=== PATIENT | male | born 1980 | race Hispanic/Latino ===

== ENCOUNTER 2021-12-11 10:35 | Observation (INO) | payer OTHER ==
[~2021-12-11] VITALS: Ht 172.7 cm; Wt 67.6 kg
[2021-12-11] MEDS ORDERED: SODIUM CHLORIDE 0.9% 500ML 500 ML IV ONE (11:30)
[2021-12-11 11:32] LABS: BASOPHILS # (AUTO) 0.1 (0.0-0.1); BASOPHILS % 1.4 % (0.0-1.0); EOSINOPHILS # (AUTO) 1.2 (0.0-0.4); EOSINOPHILS % 20.5 % (0.0-6.0); HEMATOCRIT 33.7 % (38.2-49.6); HEMOGLOBIN 11.4 g/dL (14.0-18.0); LYMPHOCYTES # (AUTO) 1.5 (1.0-3.2); MEAN CORPUSCULAR HEMOGLOBIN 36.4 pg (28-32); MEAN CORPUSCULAR HGB CONC 33.8 g/dL (31-35); MEAN CORPUSCULAR VOLUME 107.7 fL (81-99); MONOCYTES # (AUTO) 0.4 (0.2-0.8); MONOCYTES % 6.3 % (4.4-11.3); NEUTROPHILS # (AUTO) 2.8 (2.1-6.9); NEUTROPHILS % 46.5 % (38.7-80.0); PLATELET COUNT 90 x10e3/uL (140-360); RED BLOOD COUNT 3.13 x10e6/uL (4.3-5.7); RED CELL DISTRIBUTION WIDTH 13.2 % (11.7-14.4)
[2021-12-11 11:45] LABS: INR 1.42; PARTIAL THROMBOPLASTIN TIME 37.6 seconds (23.8-35.5); PROTHROMBIN TIME 18.3 seconds (11.9-14.5)
[2021-12-11 11:57] LABS: ALANINE AMINOTRANSFERASE 10 IU/L (0-55); ALBUMIN 3.9 g/dL (3.5-5.0); ALBUMIN/GLOBULIN RATIO 1.2 (0.8-2.0); ALKALINE PHOSPHATASE 114 IU/L (40-150); BLOOD UREA NITROGEN < 5 mg/dL (7-26); CALCIUM 8.9 mg/dL (8.4-10.2); CARBON DIOXIDE 24 mmol/L (22-29); CHLORIDE 107 mmol/L (98-107); CREATINE KINASE 36 IU/L (30-200); CREATININE, SERUM 0.67 mg/dL (0.72-1.25); EST GLOMERULAR FILTRATION RATE 131 ML/MIN (60-); GLUCOSE 95 mg/dL (74-118); MAGNESIUM 1.9 MG/DL (1.3-2.1); SODIUM 139 mmol/L (136-145)
[2021-12-11 12:10] LABS: BUN/CREATININE RATIO 7 (6-25)
[2021-12-11 12:17] LABS: COLOR,URINE YELLOW (YELLOW)
[2021-12-11 12:18] LABS: CLARITY,URINE CLEAR (CLEAR); KETONES,URINE TRACE (NEGATIVE); LEUKOCYTE ESTERASE ,URINE NEGATIVE (NEGATIVE); NITRITE,URINE NEGATIVE (NEGATIVE); PROTEIN,URINE DIPSTICK NEGATIVE (NEGATIVE)
[2021-12-11 12:19] LABS: URINE UROBILINOGEN >=8 mg/dL (0.2 - 1)
[2021-12-11 12:27] LABS: RBC,URINE 0-5 /HPF (0-5); WBC,URINE (MAN) 0-5 /HPF (0-5)
[2021-12-11 12:28] LABS: BACTERIA,URINE RARE /HPF
[2021-12-11] MEDS ORDERED: HYDROCODONE/APAP 10MG-325MG TAB PO STA (13:08)
[2021-12-11] MEDS ORDERED: SODIUM CHLORIDE 0.9% 1000ML 1,000 ML IV SCH (13:45)
[2021-12-11] MEDS ORDERED: HYDROCODONE/APAP 10MG-325MG TAB PO PRN (13:45)
[2021-12-11] MEDS ORDERED: ONDANSETRON HCL INJ 2MG/ML 2ML 2 MG/ML VIAL IV PRN (13:45)
[2021-12-11 14:25] LABS: EOSINOPHILS % (MANUAL) 17 % (0-7); LYMPHOCYTES % (MANUAL) 32 % (19-48); MONOCYTES % (MANUAL) 4 % (3.4-9.0); NEUTROPHILS % (MANUAL) 41 % (40-74); PROMYELOCYTES % (MANUAL) 1 % (0-0)
[2021-12-11 14:26] LABS: ANISOCYTOSIS SLIGHT; PLATELET ESTIMATE SLIGHTLY INCREASED
[2021-12-11 14:27] LABS: PLATELET MORPHOLOGY COMMENT NORMAL
[2021-12-11] MEDS: GABAPENTIN 300 MG CAP PO SCH ×2 (14:30→20:25)
[2021-12-11 15:38] VITALS: BP 100/62
[2021-12-11] MEDS ORDERED: NEURONTIN300 MG PO (15:51)
[2021-12-11] MEDS ORDERED: DOXYCYCLINE HY100 MG PO (15:51)
[2021-12-11] MEDS ORDERED: METHADONE HCL10 MG PO (15:51)
[2021-12-11] MEDS ORDERED: HYDROMORPHONE HC2 MG PO (15:51)
[2021-12-11] MEDS ORDERED: ONDANSETRON ODT4 MG PO (15:51)
[2021-12-11] MEDS ORDERED: BACLOFEN10 MG PO (15:51)
[2021-12-11 16:11] VITALS: BP 100/62
[2021-12-11] MEDS ORDERED: LACTULOSE SYRUP 20 GM/30 ML UDC PO SCH (17:00)
[2021-12-11] MEDS ORDERED: TRAMADOL HCL 50 MG TAB PO PRN (19:15)
[2021-12-11 19:40] LABS: CREATINE KINASE MB 0.3 ng/mL (0-5.0)
[2021-12-11 19:45] VITALS: BP 100/56
[2021-12-11 20:00] VITALS: BP 100/56
[2021-12-11] MEDS: LACTULOSE SYRUP 20 GM/30 ML UDC PO SCH (20:25)
[2021-12-12 00:49] VITALS: BP 93/55
[2021-12-12 02:42] LABS: CREATINE KINASE MB 0.2 ng/mL (0-5.0)
[2021-12-12 05:21] VITALS: BP 103/64
[2021-12-12 05:56] LABS: BASOPHILS # (AUTO) 0.1 (0.0-0.1); BASOPHILS % 0.9 % (0.0-1.0); EOSINOPHILS # (AUTO) 0.7 (0.0-0.4); EOSINOPHILS % 9.5 % (0.0-6.0); HEMATOCRIT 30.6 % (38.2-49.6); HEMOGLOBIN 10.5 g/dL (14.0-18.0); LYMPHOCYTES # (AUTO) 2.1 (1.0-3.2); LYMPHOCYTES % 27.8 % (18.0-39.1); MEAN CORPUSCULAR HEMOGLOBIN 36.7 pg (28-32); MEAN CORPUSCULAR HGB CONC 34.3 g/dL (31-35); MONOCYTES # (AUTO) 0.5 (0.2-0.8); MONOCYTES % 6.3 % (4.4-11.3); NEUTROPHILS # (AUTO) 4.2 (2.1-6.9); NEUTROPHILS % 55.2 % (38.7-80.0); RED BLOOD COUNT 2.86 x10e6/uL (4.3-5.7); RED CELL DISTRIBUTION WIDTH 13.1 % (11.7-14.4)
[2021-12-12 06:13] LABS: PLATELET COUNT 79 x10e3/uL (140-360)
[2021-12-12 06:41] LABS: ANION GAP 11.3 mmol/L (8-16); CALCIUM 8.5 mg/dL (8.4-10.2); CREATININE, SERUM 0.61 mg/dL (0.72-1.25); POTASSIUM 3.3 mmol/L (3.5-5.1)
[2021-12-12 07:24] VITALS: BP 102/65
[2021-12-12] MEDS ORDERED: ONDANSETRON HCL 4 MG ORAL DISINTEGRATING TAB PO PRN (08:00)
[2021-12-12] MEDS: GABAPENTIN 300 MG CAP PO SCH (08:16)
[2021-12-12] MEDS: LACTULOSE SYRUP 20 GM/30 ML UDC PO SCH (08:16)
[2021-12-12 08:18] VITALS: BP 102/65
[2021-12-12] MEDS ORDERED: LACTULOSE20 GM/30 M PO (09:20)
[2021-12-12] MEDS ORDERED: ULTRAM 50MG50 MG PO ×4 (09:20→13:48)
[2021-12-12] MEDS ORDERED: POTASSIUM CHLORIDE 20 MEQ TAB CR PO STA (09:21)
[2021-12-12] MEDS ORDERED: NEURONTIN300 MG PO (09:29)
[2021-12-12 10:11] LABS: CREATINE KINASE MB 0.2 ng/mL (0-5.0)
[2021-12-12 11:07] VITALS: BP 96/49
[2021-12-12 11:42] LABS: EOSINOPHILS % (MANUAL) 7 % (0-7); LYMPHOCYTES % (MANUAL) 24 % (19-48); MONOCYTES % (MANUAL) 3 % (3.4-9.0); NEUTROPHILS % (MANUAL) 64 % (40-74)
[2021-12-12 11:43] LABS: PLATELET ESTIMATE MODERATELY DECREASED; PLATELET MORPHOLOGY COMMENT NORMAL; RBC MORPHOLOGY COMMENT NORMAL
== END 2021-12-12 11:37 | disposition home or self-care (01) ==
LOC: ER 10:38 → ERHOLD 13:55 → MED/SURG 15:22
PROVIDERS: ADMIT Internal Medicine; ATTEND Internal Medicine
DX: K70.31 Alcoholic cirrhosis of liver with ascites (principal); G62.9 Polyneuropathy, unspecified; F10.21 Alcohol dependence, in remission; F17.200 Nicotine dependence, unspecified, uncomplicated; D63.8 Anemia in other chronic diseases classified elsewhere; Z20.822 Contact with and (suspected) exposure to COVID-19
CPT/HCPCS: 36415; 70450; 71045; 80048; 80053; 81001; 82140; 82550 ×2; 82553 ×2; 83735; 83880; 84484 ×2; 85025 ×2; 85610; 85730; 87086; 93005; 94799 ×2; 99284; G0378 ×2; J7030; J7040; U0002